=== PATIENT | female | born 1975 | race Caucasian/White ===

== ENCOUNTER 2018-12-02 16:50 | Emergency (ER) | payer OTHER ==
[~2018-12-02] VITALS: Ht 167.6 cm; Wt 90.7 kg
[2018-12-02] MEDS ORDERED: EFFEXOR XR75 MG PO (17:01)
[2018-12-02] MEDS ORDERED: ACETAMINOPHEN-1 EAC1 PO (19:13)
[2018-12-02] MEDS ORDERED: MEDROLDOSEPACK PO (19:13)
[2018-12-02] MEDS ORDERED: NAPROSYN500 MG PO (19:13)
[2018-12-02 19:23] VITALS: BP 111/78
== END 2018-12-02 19:21 | disposition home or self-care (01) ==
LOC: M.ERS 16:50
DX: I80.02 Phlebitis and thrombophlebitis of superficial vessels of left lower extremity (principal); F41.9 Anxiety disorder, unspecified; F32.9 Major depressive disorder, single episode, unspecified; Z90.49 Acquired absence of other specified parts of digestive tract